=== PATIENT | male | born 1975 | race Caucasian/White ===

== ENCOUNTER 2018-06-25 08:59 | Emergency (ER) | payer OTHER, SELFPAY ==
[2018-06-25 09:13] VITALS: BP 124/78; PULSE 64; RESP 18; TEMP 36.5; O2SAT 97
--- NOTE | 2018-06-25 09:18 | DI.RAD.S_ITS ---
PROCEDURE: XR CHEST 1V INDICATIONS: chest pain TECHNIQUE: One view of the chest was acquired. COMPARISON: None. FINDINGS: Surgical changes and devices: None. Lungs and pleura: Lungs are clear. No pleural effusions or pneumothorax. Mediastinum: Mediastinal contours appear normal. Heart size is normal. Bones and chest wall: No suspicious bony lesions. Overlying soft tissues appear unremarkable. IMPRESSION: No acute cardiopulmonary disease. Dictated by: Catarina Isabel M.D. on 06/25/2018 at 10:02 Approved by: Catarina Isabel M.D. on 06/25/2018 at 10:03
--- NOTE | 2018-06-25 09:20 | ED.CHESTPAIN ---
HPI - Chest Pain General Chief Complaint: Chest Pain Stated Complaint: Chest pain,light headed Time Seen by Provider: 06/25/18 09:18 Source: patient Mode of arrival: ambulatory Limitations: no limitations History of Present Illness HPI narrative: Patient is a 42-year-old male presenting with chest pain. It has been off and on for about 1 week. He actually noticed it when he started running a week ago. He used to run however took a break and 1 week ago was his 1st time running again. He says he went pretty hard. After that he noticed that he was having some chest discomfort. He has run since then a requires him to stopped running and walk. He sometimes feels like it is a sharp stabbing pain when he takes a deep breath however he denies shortness of breath. No fever or cough. Noted dyspnea with exertion. Pain is not radiating. MD complaint: chest pain Related Data Home Medications Medication Instructions Recorded Confirmed [id number] 1 tab PO PRN PRN 06/25/18 06/25/18 [Excedrin Migraine] cetirizine 10 mg PO PRN PRN 06/25/18 06/25/18 fluticasone propionate [Flonase 1 spray INTRANASAL DAILY 06/25/18 06/25/18 Allergy Relief] loperamide [Imodium A-D] 2 mg PO PRN PRN 06/25/18 06/25/18 naproxen sodium [Aleve] 220 mg PO PRN PRN 06/25/18 06/25/18 Allergies Allergy/AdvReac Type Severity Reaction Status Date / Time No Known Drug Allergies Allergy Verified 06/25/18 09:26 Review of Systems Review of Systems GENERAL: Denies chills, fatigue, malaise, fever, sweats, travel HEENT: Denies sinus pain, ear pain, sore throat, difficulty swallowing, neck pain RESPIRATORY: Denies dyspnea, cough, wheezing, hemoptysis, sputum. CARDIOVASCULAR: See HPI GASTROINTESTINAL: Denies nausea, vomiting, abdominal pain, diarrhea, constipation, melena. : Denies dysuria, frequency, incontinence, hematuria, urinary retention, flank pain. MUSCULOSKELETAL: Denies weakness, joint pain, or bony pain SKIN: No rash, no erythema, no pruritus NEUROLOGIC: Denies weakness, dizziness, headache, numbness, change in speech, confusion PSYCHIATRIC: No concerning psychosocial issues. 12 point review of systems is negative except for those stated above and HPI [facility] Medical History Patient denies significant medical history (Acute) Social History (Updated 06/25/18 @ 09:25 by Ca Barrett DO) Smoking Status: Never smoker alcohol intake: never substance use type: does not use Social History Smoking Status: Never smoker alcohol intake: never substance use type: does not use Exam Initial Vital Signs Initial Vital Signs: Vital Signs Temperature 97.7 F 06/25/18 09:13 Pulse Rate 64 06/25/18 09:13 Respiratory Rate 18 06/25/18 09:13 Blood Pressure 124/78 06/25/18 09:13 Pulse Oximetry 97 06/25/18 09:13 GENERAL: Well-appearing, well-nourished and in no acute distress. HEENT: Head atraumatic,EOMI, pupils reactive, face symmetric CARDIOVASCULAR: Regular rate and rhythm without murmurs, rubs or gallops. RESPIRATORY: Breath sounds equal bilaterally, no wheezes rales or rhonchi. ABDOMEN: Soft, nontender. Normoactive bowel sounds all 4 quadrants. No guarding or rebound. EXTREMITIES: Normal range of motion, no clubbing or edema. Neurovascularly intact NEUROLOGICAL: Alert and oriented x4.Normal gait and speech. Cranial nerves II through XII grossly intact. SKIN: Warm, dry, no laceration, no petechiae, no rashes or lesions. Scores HEART Score Heart Score history: Slightly Suspicious Heart Score EKG: Normal Heart Score Age: < 45 years old Heart Score risk factors: No known risk factors Heart Score troponin: < or = to normal limit Heart Score Total: 0 PERC Score Age greater than or equal to 50 years: No Heart rate greater than or equal to 100 bpm: No Room Air O2 Sat less than 95%: No Unilateral leg swelling: No Recent trauma or surgery: No Hemoptysis: No Prior PE or DVT: No Hormone Use: No Total PERC Score: 0 Wells' Criteria for PE Clinical signs and symptoms of PE: No PE is #1 Dx or equally likely: No Heart rate > 100: No Immobilization at least 3 days or surg in previous 4 weeks: No History of PE or DVT: No Hemoptysis: No Malignancy w/Treatment within 6 months or palliative: No Wells' PE Score total: 0 Course Orders Ordered: ED Orders 06/25/18 09:18 XR chest 1V Stat 06/25/18 09:20 B Type Natriuretic Peptide Stat Complete Blood Count AUTO DIFF Stat Comprehensive Metabolic Panel Stat Lipase Stat Troponin & CK Cardiac Panel Stat Discontinued Medications Albuterol (Ventolin) 2.5 mg INH NOW ONE Stop: 06/25/18 09:21 Last Admin: 06/25/18 09:39 Dose: 2.5 mg Ketorolac Tromethamine (Toradol) 30 mg IV NOW ONE Stop: 06/25/18 09:21 Last Admin: 06/25/18 09:27 Dose: 30 mg Vital Signs - 8 hr 06/25/18 09:13 06/25/18 09:46 06/25/18 10:24 Temperature 97.7 F Pulse Rate 64 83 62 Respiratory Rate 18 14 10 L Blood Pressure 124/78 Blood Pressure [Left Arm] 115/71 Pulse Oximetry 97 98 100 06/25/18 10:32 Temperature Pulse Rate 60 Respiratory Rate 13 Blood Pressure 115/70 Blood Pressure [Left Arm] Pulse Oximetry 99 MDM - Chest Pain Lab Data Attestation: I reviewed the patient's lab results. Result diagrams: 06/25/18 09:20 06/25/18 09:20 Lab Results 06/25/18 06/25/18 Range/Units 09:20 09:20 WBC 4.9 (4.5-11.0) X10^3/uL RBC 5.39 (4.5-5.9) X10^6/uL Hgb 16.1 (13.5-17.5) g/dL Hct 46.7 (41-53) % MCV 86.6 (80-100) fL MCH 29.8 (26-34) PG MCHC 34.5 (30-36) % RDW 13.4 (11.6-14.8) % Plt Count 231 (150-400) X10^3/uL Neut % (Auto) 54.8 (50-75) % Lymph % (Auto) 34.9 (25-40) % [place] % (Auto) 7.6 (3-14) % Eos % (Auto) 2.4 (2-4) % Baso % (Auto) 0.3 (0-2) % Neut # (Auto) 2700 (5710-1476) /uL Lymph # (Auto) 1700 (8700-2041) /uL [place] # (Auto) 400 (0-900) /uL Eos # (Auto) 100 (0-450) /uL Baso # (Auto) 0 (0-100) /uL Sodium 141 (137-145) mmol/L Potassium 3.5 (3.4-5.1) mmol/L Chloride 103 (98-107) mmol/L Carbon Dioxide 27 (22-32) mmol/L BUN 17 (9-20) mg/dL Creatinine 1.00 (0.66-1.25) mg/dL Estimated GFR > 60.0 (>60) mL/min BUN/Creatinine Ratio 17.0 (6-22) Glucose 101 H (70-100) mg/dL Calcium 9.3 (8.4-10.2) mg/dL Total Bilirubin 0.4 (0.2-1.3) mg/dL AST 23 (17-59) IU/L ALT 33 (21-72) IU/L Alkaline Phosphatase 65 (38-126) U/L Total Creatine Kinase 219 H (55-170) U/L CK-MB (CK-2) 0.46 (<2.37) ng/mL CK-MB (CK-2) Rel Index 0.2 L (1.5-5.0) % Troponin I < 0.012 (0.01-0.034) ng/mL B-Natriuretic Peptide < 100 (<100) Total Protein 7.2 (6.3-8.2) g/dL Albumin 4.7 (3.5-5.0) g/dL Globulin 2.5 (1.7-4.1) g/dL Albumin/Globulin Ratio 1.9 (1.0-2.8) Lipase 104 (23-300) U/L Imaging Data Chest x-ray: Radiologist's impression: PROCEDURE: XR CHEST 1V INDICATIONS: chest pain TECHNIQUE: One view of the chest was acquired. COMPARISON: None. FINDINGS: Surgical changes and devices: None. Lungs and pleura: Lungs are clear. No pleural effusions or pneumothorax. Mediastinum: Mediastinal contours appear normal. Heart size is normal. Bones and chest wall: No suspicious bony lesions. Overlying soft tissues appear unremarkable. IMPRESSION: No acute cardiopulmonary disease. Dictated by: Catarina Isabel M.D. on 06/25/2018 at 10:02 Approved by: Catarina Isabel M.D. on 06/25/2018 at 10:03 ECG Data Attestation: I personally reviewed and interpreted this ECG as follows: Prior ECG tracings: not available for review Interpretation: Normal sinus rhythm rate [address] changes no T-wave inversions p.r. intervals 191 QRS 100 QTC 406 MDM Narrative Medical decision making narrative: The patient's pain is completely gone after Toradol. I think it is more inflammatory process. He has no P or depression or signs of pericarditis. Possible pleurisy although it is not every time he breathes. This time I recommend he take anti-inflammatory for 1-2 weeks ago this pain gets worse he needs to follow-up with his PCP in [facility]. He is low risk for PE and coronary artery disease Discharge Plan Departure Patient Disposition: Home Clinical Impression: Atypical chest pain Discharge Date/Time: 06/25/18 10:32 Interventions: ED Discharge Assessment Last Done: 06/25/18 10:32 Instructions: DI for Atypical Chest Pain, DI for Pleurisy Activity Restrictions/Additional Instructions: *You have been diagnosed with atypical chest *What to do: Possible pleurisy. May require further cardiac testing by her primary care provider *Continue to take medications as directed Take ibuprofen 800 mg every 8 hours only if needed for pain for 1-2 weeks *Follow up with your primary care provider in 2-3 days *Return to ER if you should have worsening chest pain, increasing shortness of breath or any new, worsening or concerning symptoms Prescriptions: No Action cetirizine 10 mg Tablet 10 mg PO PRN PRN (Reason: Allergy Symptoms) RF: 0 loperamide [Imodium A-D] 2 mg Tablet 2 mg PO PRN PRN (Reason: Diarrhea) RF: 0 naproxen sodium [Aleve] 220 mg Tablet 220 mg PO PRN PRN (Reason: pain or headache) RF: 0 fluticasone propionate [Flonase Allergy Relief] 50 mcg/actuation [place],Susp[place] 1 spray Intranasal DAILY RF: 0 Excedrin Migraine 250-250-65 mg Tablet 1 tab PO PRN PRN (Reason: Headache) RF: 0
--- NOTE | 2018-06-25 09:24 | ED_ITS ---
HPI - Chest Pain General Chief Complaint: Chest Pain Stated Complaint: Chest pain,light headed Time Seen by Provider: 06/25/18 09:18 Source: patient Mode of arrival: ambulatory Limitations: no limitations History of Present Illness HPI narrative: Patient is a 42-year-old male presenting with chest pain. It has been off and on for about 1 week. He actually noticed it when he started running a week ago. He used to run however took a break and 1 week ago was his 1st time running again. He says he went pretty hard. After that he noticed that he was having some chest discomfort. He has run since then a requires him to stopped running and walk. He sometimes feels like it is a sharp stabbing pain when he takes a deep breath however he denies shortness of breath. No fever or cough. Noted dyspnea with exertion. Pain is not radiating. MD complaint: chest pain Related Data Home Medications Medication Instructions Recorded Confirmed [id number] 1 tab PO PRN PRN 06/25/18 06/25/18 [Excedrin Migraine] cetirizine 10 mg PO PRN PRN 06/25/18 06/25/18 fluticasone propionate [Flonase 1 spray INTRANASAL DAILY 06/25/18 06/25/18 Allergy Relief] loperamide [Imodium A-D] 2 mg PO PRN PRN 06/25/18 06/25/18 naproxen sodium [Aleve] 220 mg PO PRN PRN 06/25/18 06/25/18 Allergies Allergy/AdvReac Type Severity Reaction Status Date / Time No Known Drug Allergies Allergy Verified 06/25/18 09:26 Review of Systems Review of Systems GENERAL: Denies chills, fatigue, malaise, fever, sweats, travel HEENT: Denies sinus pain, ear pain, sore throat, difficulty swallowing, neck pain RESPIRATORY: Denies dyspnea, cough, wheezing, hemoptysis, sputum. CARDIOVASCULAR: See HPI GASTROINTESTINAL: Denies nausea, vomiting, abdominal pain, diarrhea, constipation, melena. : Denies dysuria, frequency, incontinence, hematuria, urinary retention, flank pain. MUSCULOSKELETAL: Denies weakness, joint pain, or bony pain SKIN: No rash, no erythema, no pruritus NEUROLOGIC: Denies weakness, dizziness, headache, numbness, change in speech, confusion PSYCHIATRIC: No concerning psychosocial issues. 12 point review of systems is negative except for those stated above and HPI [facility] Medical History Patient denies significant medical history (Acute) Social History (Updated 06/25/18 @ 09:25 by Ca Barrett DO) Smoking Status: Never smoker alcohol intake: never substance use type: does not use Social History Smoking Status: Never smoker alcohol intake: never substance use type: does not use Exam Initial Vital Signs Initial Vital Signs: Vital Signs Temperature 97.7 F 06/25/18 09:13 Pulse Rate 64 06/25/18 09:13 Respiratory Rate 18 06/25/18 09:13 Blood Pressure 124/78 06/25/18 09:13 Pulse Oximetry 97 06/25/18 09:13 GENERAL: Well-appearing, well-nourished and in no acute distress. HEENT: Head atraumatic,EOMI, pupils reactive, face symmetric CARDIOVASCULAR: Regular rate and rhythm without murmurs, rubs or gallops. RESPIRATORY: Breath sounds equal bilaterally, no wheezes rales or rhonchi. ABDOMEN: Soft, nontender. Normoactive bowel sounds all 4 quadrants. No guarding or rebound. EXTREMITIES: Normal range of motion, no clubbing or edema. Neurovascularly intact NEUROLOGICAL: Alert and oriented x4.Normal gait and speech. Cranial nerves II through XII grossly intact. SKIN: Warm, dry, no laceration, no petechiae, no rashes or lesions. Scores HEART Score Heart Score history: Slightly Suspicious Heart Score EKG: Normal Heart Score Age: < 45 years old Heart Score risk factors: No known risk factors Heart Score troponin: < or = to normal limit Heart Score Total: 0 PERC Score Age greater than or equal to 50 years: No Heart rate greater than or equal to 100 bpm: No Room Air O2 Sat less than 95%: No Unilateral leg swelling: No Recent trauma or surgery: No Hemoptysis: No Prior PE or DVT: No Hormone Use: No Total PERC Score: 0 Wells' Criteria for PE Clinical signs and symptoms of PE: No PE is #1 Dx or equally likely: No Heart rate > 100: No Immobilization at least 3 days or surg in previous 4 weeks: No History of PE or DVT: No Hemoptysis: No Malignancy w/Treatment within 6 months or palliative: No Wells' PE Score total: 0 Course Orders Ordered: ED Orders 06/25/18 09:18 XR chest 1V Stat 06/25/18 09:20 B Type Natriuretic Peptide Stat Complete Blood Count AUTO DIFF Stat Comprehensive Metabolic Panel Stat Lipase Stat Troponin & CK Cardiac Panel Stat Discontinued Medications Albuterol (Ventolin) 2.5 mg INH NOW ONE Stop: 06/25/18 09:21 Last Admin: 06/25/18 09:39 Dose: 2.5 mg Ketorolac Tromethamine (Toradol) 30 mg IV NOW ONE Stop: 06/25/18 09:21 Last Admin: 06/25/18 09:27 Dose: 30 mg Vital Signs - 8 hr 06/25/18 09:13 06/25/18 09:46 06/25/18 10:24 Temperature 97.7 F Pulse Rate 64 83 62 Respiratory Rate 18 14 10 L Blood Pressure 124/78 Blood Pressure [Left Arm] 115/71 Pulse Oximetry 97 98 100 06/25/18 10:32 Temperature Pulse Rate 60 Respiratory Rate 13 Blood Pressure 115/70 Blood Pressure [Left Arm] Pulse Oximetry 99 MDM - Chest Pain Lab Data Attestation: I reviewed the patient's lab results. Result diagrams: 06/25/18 09:20 06/25/18 09:20 Lab Results 06/25/18 06/25/18 Range/Units 09:20 09:20 WBC 4.9 (4.5-11.0) X10^3/uL RBC 5.39 (4.5-5.9) X10^6/uL Hgb 16.1 (13.5-17.5) g/dL Hct 46.7 (41-53) % MCV 86.6 (80-100) fL MCH 29.8 (26-34) PG MCHC 34.5 (30-36) % RDW 13.4 (11.6-14.8) % Plt Count 231 (150-400) X10^3/uL Neut % (Auto) 54.8 (50-75) % Lymph % (Auto) 34.9 (25-40) % [place] % (Auto) 7.6 (3-14) % Eos % (Auto) 2.4 (2-4) % Baso % (Auto) 0.3 (0-2) % Neut # (Auto) 2700 (6301-8861) /uL Lymph # (Auto) 1700 (4543-1844) /uL [place] # (Auto) 400 (0-900) /uL Eos # (Auto) 100 (0-450) /uL Baso # (Auto) 0 (0-100) /uL Sodium 141 (137-145) mmol/L Potassium 3.5 (3.4-5.1) mmol/L Chloride 103 (98-107) mmol/L Carbon Dioxide 27 (22-32) mmol/L BUN 17 (9-20) mg/dL Creatinine 1.00 (0.66-1.25) mg/dL Estimated GFR > 60.0 (>60) mL/min BUN/Creatinine Ratio 17.0 (6-22) Glucose 101 H (70-100) mg/dL Calcium 9.3 (8.4-10.2) mg/dL Total Bilirubin 0.4 (0.2-1.3) mg/dL AST 23 (17-59) IU/L ALT 33 (21-72) IU/L Alkaline Phosphatase 65 (38-126) U/L Total Creatine Kinase 219 H (55-170) U/L CK-MB (CK-2) 0.46 (<2.37) ng/mL CK-MB (CK-2) Rel Index 0.2 L (1.5-5.0) % Troponin I < 0.012 (0.01-0.034) ng/mL B-Natriuretic Peptide < 100 (<100) Total Protein 7.2 (6.3-8.2) g/dL Albumin 4.7 (3.5-5.0) g/dL Globulin 2.5 (1.7-4.1) g/dL Albumin/Globulin Ratio 1.9 (1.0-2.8) Lipase 104 (23-300) U/L Imaging Data Chest x-ray: Radiologist's impression: PROCEDURE: XR CHEST 1V INDICATIONS: chest pain TECHNIQUE: One view of the chest was acquired. COMPARISON: None. FINDINGS: Surgical changes and devices: None. Lungs and pleura: Lungs are clear. No pleural effusions or pneumothorax. Mediastinum: Mediastinal contours appear normal. Heart size is normal. Bones and chest wall: No suspicious bony lesions. Overlying soft tissues appear unremarkable. IMPRESSION: No acute cardiopulmonary disease. Dictated by: Catarina Isabel M.D. on 06/25/2018 at 10:02 Approved by: Catarina Isabel M.D. on 06/25/2018 at 10:03 ECG Data Attestation: I personally reviewed and interpreted this ECG as follows: Prior ECG tracings: not available for review Interpretation: Normal sinus rhythm rate [address] changes no T-wave inversions p.r. intervals 191 QRS 100 QTC 406 MDM Narrative Medical decision making narrative: The patient's pain is completely gone after Toradol. I think it is more inflammatory process. He has no P or depression or signs of pericarditis. Possible pleurisy although it is not every time he breathes. This time I recommend he take anti-inflammatory for 1-2 weeks ago th is pain gets worse he needs to follow-up with his PCP in [facility]. He is low risk for PE and coronary artery disease Discharge Plan Departure Patient Disposition: Home Clinical Impression: Atypical chest pain Discharge Date/Time: 06/25/18 10:32 Interventions: ED Discharge Assessment Last Done: 06/25/18 10:32 Instructions: DI for Atypical Chest Pain, DI for Pleurisy Activity Restrictions/Additional Instructions: *You have been diagnosed with atypical chest *What to do: Possible pleurisy. May require further cardiac testing by her primary care provider *Continue to take medications as directed Take ibuprofen 800 mg every 8 hours only if needed for pain for 1-2 weeks *Follow up with your primary care provider in 2-3 days *Return to ER if you should have worsening chest pain, increasing shortness of breath or any new, worsening or concerning symptoms Prescriptions: No Action cetirizine 10 mg Tablet 10 mg PO PRN PRN (Reason: Allergy Symptoms) RF: 0 loperamide [Imodium A-D] 2 mg Tablet 2 mg PO PRN PRN (Reason: Diarrhea) RF: 0 naproxen sodium [Aleve] 220 mg Tablet 220 mg PO PRN PRN (Reason: pain or headache) RF: 0 fluticasone propionate [Flonase Allergy Relief] 50 mcg/actuation [place] 1 spray Intranasal DAILY RF: 0 Excedrin Migraine 250-250-65 mg Tablet 1 tab PO PRN PRN (Reason: Headache) RF: 0
[2018-06-25 09:27] LABS: Add Manual Diff / Slide Review NO; Basophils Absolute Auto 0 /uL (0-100); Basophils Percent Auto 0.3 % (0-2); Eosinophils Absolute Auto 100 /uL (0-450); Eosinophils Percent Auto 2.4 % (2-4); Hematocrit 46.7 % (41-53); Hemoglobin 16.1 g/dL (13.5-17.5); Lymphocytes Absolute Auto 1700 /uL (1100-4500); Lymphocytes Percent Auto 34.9 % (25-40); Mean Corpuscular HGB Conc 34.5 % (30-36); Mean Corpuscular Hemoglobin 29.8 PG (26-34); Mean Corpuscular Volume 86.6 fL (80-100); Monocytes Absolute Auto 400 /uL (0-900); Monocytes Percent Auto 7.6 % (3-14); Neutrophils Absolute Auto 2700 /uL (1500-7000); Neutrophils Percent Auto 54.8 % (50-75); Platelet Count 231 X10^3/uL (150-400); Red Blood Cell Count 5.39 X10^6/uL (4.5-5.9); Red Cell Distribution Width 13.4 % (11.6-14.8); White Blood Cell Count 4.9 X10^3/uL (4.5-11.0)
[2018-06-25] MEDS: KETOROLAC 60 MG/2 ML VIAL 30 MG IV (09:27)
[2018-06-25 09:36] LABS: Alanine Aminotransferase 33 IU/L (21-72); Albumin 4.7 g/dL (3.5-5.0); Albumin Globulin Ratio 1.9 (1.0-2.8); Alkaline Phosphatase 65 U/L (38-126); Aspartate Aminotransferase 23 IU/L (17-59); Bilirubin Total 0.4 mg/dL (0.2-1.3); Blood Urea Nitrogen 17 mg/dL (9-20); Calcium 9.3 mg/dL (8.4-10.2); Carbon Dioxide 27 mmol/L (22-32); Chloride 103 mmol/L (98-107); Creatine Kinase 219 U/L (55-170); Estimated Glomerular Filt Rate > 60.0 mL/min (>60); Globulin 2.5 g/dL (1.7-4.1); Glucose 101 mg/dL (70-100); HEMOLYSIS < 15 (0-50); Lipase 104 U/L (23-300); Potassium 3.5 mmol/L (3.4-5.1); Sodium 141 mmol/L (137-145); Total Protein 7.2 g/dL (6.3-8.2)
[2018-06-25] MEDS: ALBUTEROL 2.5 MG/3 ML NEB (ADULT) INH (09:39)
[2018-06-25 09:46] VITALS: PULSE 83; RESP 14; O2SAT 98
[2018-06-25 09:47] LABS: B Type Natriuretic Peptide < 100 (<100)
[2018-06-25 09:48] LABS: Troponin I < 0.012 ng/mL (0.01-0.034)
[2018-06-25 09:52] LABS: CKMB % Relative Index 0.2 % (1.5-5.0); Creatine Kinase MB 0.46 ng/mL (<2.37)
[2018-06-25 10:24] VITALS: BP 115/71; PULSE 62; RESP 10; O2SAT 100
[2018-06-25 10:32] VITALS: BP 115/70; PULSE 60; RESP 13; O2SAT 99
== END 2018-06-25 10:32 | disposition home or self-care (01) ==
PROVIDERS: Emergency Provider Emergency Medicine
DX: R07.89 Other chest pain (principal); R42 Dizziness and giddiness
CPT/HCPCS: 71045; 80053; 82550; 82553; 83690; 83880; 84484; 85025; 93005; 94640; 96374; 99283; 99285; J1885; J7613